=== PATIENT | female | born 1965 | race Caucasian/White ===

== ENCOUNTER 2017-09-23 13:17 | Observation (INO) | payer OTHER ==
[2017-09-23] MEDS ORDERED: LOPRESSOR 5 MG/5 ML INJECTION IV ONE ×4 (13:41→14:38)
[2017-09-23] MEDS ORDERED: NITRO-BID 2% UD PACKETS TOP ONE (13:41)
--- NOTE | 2017-09-23 13:46 | ERPHSYRPT ---
- History of Present Illness Time Seen by Provider: 09/23/17 13:35 Historian: patient Exam Limitations: clinical condition Patient Subjective Stated Complaint: Chest Pain since Thursday. No hx of complaint Triage Nursing Assessment: Pt presents to the ED with complaints of chest pain since thursday, intermittent in nature. Pt states pain today felt different than the other pains. No hx of complaint. Pt states she believes stress is causing the pain. Physician History: PATIENT WITH A HISTORY OF HYPERTENSION, COMPLAINS OF SHARP SUBSTERNAL CHEST PAINS INTERMITTENT X 4 DAYS, STATES PAIN RESOLVED 1 HOUR PRIOR TO EMERGENCY ROOM ARRIVAL. DENIES ASSOCIATED PALPITATIONS, DIAPHORESIS, DYSPNEA, RADIATION OF PAIN TO HER BACK, JAW OR ARMS. HAS AN ASPIRIN ALLERGY. HAS HISTORY OF MULTIPLE CERVICAL, THORACIC AND LUMBAR BULGING DISC ASSOCIATED WITH LEFT ARM NUMBNESS. Timing/Duration: day(s) Activities at Onset: none Quality: sharpness Location: substernal Chest Pain Radiation: no radiation Severity of Pain-Max: moderate Severity of Pain-Current: none Modifying Factors: Improves With: nothing Associated Symptoms: denies symptoms Prior Chest Pain/Cardiac Workup: no prior chest pain Nitro Today/Relief: no nitro taken today Aspirin Treatment Today: no aspirin today (HAS ASPIRIN ALLERGY) Allergies/Adverse Reactions: aspirin Allergy (Severe, Verified 09/23/17 13:25) NSAIDS (Non-Steroidal Anti-Inflamma Allergy (Severe, Verified 11/03/11 13:34) Penicillins Allergy (Severe, Verified 11/03/11 13:33) Sulfa (Sulfonamide Antibiotics) [Sulfa(Sulfonamide Antibiotics)] Allergy (Severe , Verified 11/03/11 13:33) Home Medications: Benazepril HCl 10 mg [Lotensin 10 MG] 10 mg PO DAILY 09/23/17 [History] Hydrocodone Bit/Acetaminophen [[place] 7.5-325 Tablet] 1 each PO BIDPRN PRN [History] Hx Tetanus, Diphtheria Vaccination/Date Given: Yes Hx Influenza Vaccination/Date Given: No Hx Pneumococcal Vaccination/Date Given: No Immunizations Up to Date: No - Review of Systems Constitutional: No Fever, No Chills Eyes: No Symptoms Ears, Nose, & Throat: No Symptoms Respiratory: No Symptoms, No Cough, No Dyspnea Cardiac: Chest Pain, No Edema, No Syncope Abdominal/Gastrointestinal: No Symptoms, No Abdominal Pain, No Nausea, No Vomiting, No Diarrhea Genitourinary Symptoms: No Symptoms, No Dysuria Musculoskeletal: No Symptoms, No Back Pain, No Neck Pain Skin: No Rash Neurological: No Dizziness, No Focal Weakness, No Sensory Changes Psychological: No Symptoms Endocrine: No Symptoms All Other Systems: Reviewed and Negative - Past Medical History Pertinent Past Medical History: Yes Neurological History: No Pertinent History ENT History: No Pertinent History Cardiac History: Hypertension Respiratory History: No Pertinent History Endocrine Medical History: No Pertinent History Musculoskeletal History: No Pertinent History GI Medical History: GERD History: No Pertinent History Psycho-Social History: Anxiety Female Reproductive Disorders: No Pertinent History - Past Surgical History Past Surgical History: Yes Neuro Surgical History: No Pertinent History Cardiac: No Pertinent History Respiratory: No Pertinent History Gastrointestinal: Cholecystectomy Genitourinary: Other Musculoskeletal: No Pertinent History Female Surgical History: No Pertinent History Other Surgical History: HYST BLADDER REAPAIR TIMES 2 - Social History Smoking Status: Current every day smoker How long have you smoked: 5 years Exposure to second hand smoke: Yes Drug Use: none Patient Lives Alone: No - Female History Hx Now: No - Nursing Vital Signs Nursing Vital Signs: Initial Vital Signs Temperature 97.9 F 09/23/17 13:18 Pulse Rate 118 H 09/23/17 13:18 Respiratory Rate 18 09/23/17 13:18 Blood Pressure 179/100 09/23/17 13:18 O2 Sat by Pulse Oximetry 100 09/23/17 13:18 Pain Scale Pain Intensity 2 - Physical Exam General Appearance: no apparent distress, alert Eye Exam: PERRL/EOMI, eyes nml inspection Ears, Nose, Throat Exam: normal ENT inspection, moist mucous membranes Neck Exam: normal inspection, non-tender, supple, full range of motion Respiratory Exam: normal breath sounds, lungs clear, No respiratory distress Cardiovascular Exam: regular rate/rhythm, normal heart sounds, tachycardia Gastrointestinal/Abdomen Exam: soft, normal bowel sounds, No tenderness, No mass Back Exam: normal inspection, No CVA tenderness, No vertebral tenderness Extremity Exam: normal inspection, normal range of motion Neurologic Exam: alert, oriented x 3, cooperative, normal mood/affect, sensation nml, No motor deficits Skin Exam: normal color, warm, dry SpO2 Interpretation: normal SpO2: 100 Oxygen Delivery: Room Air - Course EKG Interpreted by Me: RATE, Sinus Rhythm, Sinus Tach (RATE 118, LATERAL T-WAVE FLAT), NORMAL AXIS - Radiology Exams Chest X-ray Interpretation: Discussed w/ radiologist, No Infiltrates Ordered Tests: Active Orders 24 hr Category Date Time Status Rigging Worker STAT Care 09/23/17 13:41 Active EKG-ER Only STAT Care 09/23/17 13:41 Active IV Insertion STAT Care 09/23/17 13:41 Active Oxygen-ED Only NASAL CANNULA 2 lpm Care 09/23/17 13:41 Active Pulse Oximetry (ED) STAT Care 09/23/17 13:41 Active CHEST 1 VIEW (PORTABLE) Stat Exams 09/23/17 13:41 Completed CBC W DIFF Stat Lab 09/23/17 13:40 Completed CMP Stat Lab 09/23/17 13:40 Completed D-DIMER QUANTITATION Stat Lab 09/23/17 13:40 Completed NT PRO BNP Stat Lab 09/23/17 13:40 Completed PROTIME WITH INR Stat Lab 09/23/17 13:40 Completed TROPONIN Q3H Lab 09/23/17 13:40 Completed TROPONIN Q3H Lab 09/23/17 16:45 Ordered TROPONIN Q3H Lab 09/23/17 19:45 Ordered TROPONIN Q3H Lab 09/23/17 22:45 Ordered TROPONIN Q3H Lab 09/24/17 01:45 Ordered Medication Summary Generic Name Dose Route Start Last Admin Trade Name Freq PRN Reason Stop Dose Admin Sodium Chloride 1,000 mls @ 50 mls/hr 09/23/17 13:45 09/23/17 13:50 Sodium Chloride 0.9% 1000 Ml IV 10/23/17 13:44 50 mls/hr .Q20H DEVANTE Administration Discontinued Medications Generic Name Dose Route Start Last Admin Trade Name Freq PRN Reason Stop Dose Admin Metoprolol Tartrate 2.5 mg 09/23/17 13:41 09/23/17 13:50 Lopressor 5 Mg/5 Ml Injection IV 09/23/17 13:42 2.5 mg STAT ONE Administration Metoprolol Tartrate Confirm 09/23/17 13:47 Lopressor 5 Mg/5 Ml Injection Administered 09/23/17 13:48 Dose 5 mg IV .STK-MED ONE Metoprolol Tartrate 5 mg 09/23/17 14:35 09/23/17 14:39 Lopressor 5 Mg/5 Ml Injection IV 09/23/17 14:36 5 mg STAT ONE Administration Metoprolol Tartrate Confirm 09/23/17 14:38 Lopressor 5 Mg/5 Ml Injection Administered 09/23/17 14:39 Dose 5 mg IV .STK-MED ONE Nitroglycerin 1 gm 09/23/17 13:41 09/23/17 13:50 Nitro-Bid 2% Ud Packets TOP 09/23/17 13:42 1 gm STAT ONE Administration Nitroglycerin Confirm 09/23/17 13:47 Nitro-Bid 2% Ud Packets Administered 09/23/17 13:48 Dose 1 gm .ROUTE .STK-MED ONE Lab/Rad Data: Laboratory Result Diagrams 09/23/17 13:40 09/23/17 13:40 Laboratory Results 09/23/17 09/23/17 09/23/17 Range/Units 13:40 13:40 13:40 WBC (4.0-10.5) K/mm3 RBC (4.1-5.4) M/mm3 Hgb (12.0-16.0) gm/dl Hct (35-47) % MCV (78-100) fl MCH (26-32) pg MCHC (32-36) g/dl RDW (11.5-14.0) % Plt Count (150-450) K/mm3 MPV (6-9.5) fl Gran % (36.0-66.0) % Eos # (Auto) (0-0.5) Absolute Lymphs (auto) (1.0-4.6) Absolute Monos (auto) (0.0-1.3) Lymphocytes % (24.0-44.0) % Monocytes % (0.0-12.0) % Eosinophils % (0.00-5.0) % Basophils % (0.0-0.4) % Absolute Granulocytes (1.4-6.9) Basophils # (0-0.4) PT 11.6 (9.95-12.35) SECONDS INR 1.04 (0.8-3.0) D-Dimer < 215 L (215-500) ng/mL Sodium 141 (137-145) mmol/L Potassium 3.4 L (3.5-5.1) mmol/L Chloride 99 (98-107) mmol/L Carbon Dioxide 31 H (22-30) mmol/L Anion Gap 14.4 (5-15) MEQ/L BUN 10 (7-17) mg/dL Creatinine 0.68 (0.52-1.04) mg/dL Estimated GFR > 60.0 ML/MIN Glucose 97 (74-106) mg/dL Calcium 9.9 (8.4-10.2) mg/dL Total Bilirubin 0.50 (0.2-1.3) mg/dL AST 38 H (14-36) U/L ALT 48 H (0-35) U/L Alkaline Phosphatase 97 (38-126) U/L Troponin I < 0.012 (0.000-0.034) ng/mL NT-Pro-B Natriuret Pep 26.2 (0-900) pg/mL Serum Total Protein 8.3 H (6.3-8.2) g/dL Albumin 4.8 (3.5-5.0) g/dL 09/23/17 Range/Units 13:40 WBC 9.8 (4.0-10.5) K/mm3 RBC 4.57 (4.1-5.4) M/mm3 Hgb 12.8 (12.0-16.0) gm/dl Hct 39.8 (35-47) % MCV 87.1 (78-100) fl MCH 28.0 (26-32) pg MCHC 32.2 (32-36) g/dl RDW 15.0 H (11.5-14.0) % Plt Count 295 (150-450) K/mm3 MPV 9.6 H (6-9.5) fl Gran % 64.4 (36.0-66.0) % Eos # (Auto) 0.14 (0-0.5) Absolute Lymphs (auto) 2.67 (1.0-4.6) Absolute Monos (auto) 0.65 (0.0-1.3) Lymphocytes % 27.2 (24.0-44.0) % Monocytes % 6.6 (0.0-12.0) % Eosinophils % 1.4 (0.00-5.0) % Basophils % 0.4 (0.0-0.4) % Absolute Granulocytes 6.32 (1.4-6.9) Basophils # 0.04 (0-0.4) PT (9.95-12.35) SECONDS INR (0.8-3.0) D-Dimer (215-500) ng/mL Sodium (137-145) mmol/L Potassium (3.5-5.1) mmol/L Chloride (98-107) mmol/L Carbon Dioxide (22-30) mmol/L Anion Gap (5-15) MEQ/L BUN (7-17) mg/dL Creatinine (0.52-1.04) mg/dL Estimated GFR ML/MIN Glucose (74-106) mg/dL Calcium (8.4-10.2) mg/dL Total Bilirubin (0.2-1.3) mg/dL AST (14-36) U/L ALT (0-35) U/L Alkaline Phosphatase (38-126) U/L Troponin I (0.000-0.034) ng/mL NT-Pro-B Natriuret Pep (0-900) pg/mL Serum Total Protein (6.3-8.2) g/dL Albumin (3.5-5.0) g/dL - Progress Progress Note: 09/23/17 13:50 ADMINISTERED NITROPASTE 1" ACW, LOPRESSOR 2.5MG IV FOR TACHYCARDIA, NO ASPIRIN GIVEN DUE TO ALLERGY Discussed with : Alireza (DISCUSSED WITH DR LINDO AT 1500 FOR OBSERVATION) - Departure Time of Disposition: 15:15 Departure Disposition: Observation Clinical Impression: ACUTE CHEST PAIN Condition: Stable Critical Care Time: No Referrals: YANDY FREDERICK [NON-STAFF PHY W/O PRIVILEGES] -
[2017-09-23] MEDS ORDERED: NITRO-BID 2% UD PACKETS ONE (13:47)
[2017-09-23] MEDS: Sodium Chloride 0.9% 1000 ML 1,000 ML IV SCH ×2 (13:50→16:52)
[2017-09-23 13:53] LABS: BASOPHIL % 0.4 % (0.0-0.4); Basophil (Absolute #) 0.04 (0-0.4); Eosinophil % 1.4 % (0.00-5.0); Eosinophil (Absolute #) 0.14 (0-0.5); Granulocyte Absolute (ANC) 6.32 (1.4-6.9); Granulocytes % 64.4 % (36.0-66.0); Hematocrit 39.8 % (35-47); Hemoglobin 12.8 gm/dl (12.0-16.0); Lymphocyte (Absolute #) 2.67 (1.0-4.6); Lymphocytes % 27.2 % (24.0-44.0); Mean Cell Volume 87.1 fl (78-100); Mean Corpuscular Hgb Concent. 32.2 g/dl (32-36); Mean Platelet Volume 9.6 fl (6-9.5); Monocyte (Absolute #) 0.65 (0.0-1.3); Monocytes % 6.6 % (0.0-12.0); Platelet Count 295 K/mm3 (150-450); Red Blood Count 4.57 M/mm3 (4.1-5.4); White Blood Count 9.8 K/mm3 (4.0-10.5)
--- NOTE | 2017-09-23 13:57 | XRAY ---
Indication: Chest pain. Comparison: None Portable chest demonstrates normal heart, lungs, and bony thorax with a few incidental calcified granulomas.
[2017-09-23 14:09] LABS: INR 1.04 (0.8-3.0)
[2017-09-23 14:18] LABS: D-DIMER QUANTITATION < 215 ng/mL (215-500)
[2017-09-23 14:21] LABS: ALBUMIN 4.8 g/dL (3.5-5.0); ALKALINE PHOSPHATASE 97 U/L (38-126); ANION GAP 14.4 MEQ/L (5-15); BLOOD UREA NITROGEN 10 mg/dL (7-17); CHLORIDE 99 mmol/L (98-107); Calcium 9.9 mg/dL (8.4-10.2); Carbon Dioxide 31 mmol/L (22-30); Creatinine 1 0.68 mg/dL (0.52-1.04); Glucose 97 mg/dL (74-106); Potassium 3.4 mmol/L (3.5-5.1); SGOT/AST 38 U/L (14-36); SGPT/ALT 48 U/L (0-35); SODIUM 141 mmol/L (137-145); Total Protein 8.3 g/dL (6.3-8.2)
[2017-09-23 14:30] LABS: NT PRO BNP 26.2 pg/mL (0-900)
[2017-09-23] MEDS ORDERED: MAALOX ES 30 ML UNIT DOSE PO PRN (15:11)
[2017-09-23] MEDS ORDERED: Nitrostat 0.4 MG Tablet SL PRN (15:11)
[2017-09-23] MEDS ORDERED: Zofran 4 MG/2 ML VIAL IV PRN (15:11)
[2017-09-23] MEDS ORDERED: MORPHINE SULFATE 2 MG INJ IV PRN (15:11)
[2017-09-23] MEDS ORDERED: Senokot-S Tablet PO PRN (15:11)
[2017-09-23] MEDS ORDERED: MILK OF MAGNESIA 30 ML PO PRN (15:11)
[2017-09-23] MEDS ORDERED: Norco 10/325 MG Tablet PO PRN (15:14)
[2017-09-23] MEDS: TYLENOL 325 MG PO PRN ×2 (16:15→22:02)
--- NOTE | 2017-09-23 21:21 | PCM.HP ---
History of Present Illness - Chief Complaint Chief Complaint: chest pain. History of Present Illness: is a 52 year old female who presented to the ER today with a 2-3 days history of intermittent chest pain. She was recently started on lotensin for hypertension and has a history of chronic back and neck pain related to disc disease. She had nausea and vomiting yesterday, today she had substernal chest pain that was sharp in nature, improved with rest. She is a smoker and has a family history of CAD. She was found to have hypertension in the ER on presentation and improved with IV metoprolol, she denies chest pain since admission but has had some headache. - Review of Systems Constitutional: No Fever, No Chills Respiratory: No Cough, No Short Of Breath Cardiac: No Chest Pain, No Edema, No Syncope Abdominal/Gastrointestinal: No Abdominal Pain, No Nausea, No Vomiting, No Diarrhea Genitourinary Symptoms: No Dysuria Skin: No Rash All Other Systems: Reviewed and Negative Medications & Allergies Home Medications: Home Medication List Benazepril HCl 10 mg [Lotensin 10 MG] 10 mg PO DAILY 09/23/17 [History Confirmed 09/23/17] Hydrocodone Bit/Acetaminophen [[place] 7.5-325 Tablet] 1 each PO BIDPRN PRN [History Confirmed 09/23/17] Allergies/Adverse Reactions: Allergies Allergy/AdvReac Type Severity Reaction Status Date / Time aspirin Allergy Severe Verified 09/23/17 13:25 NSAIDS (Non-Steroidal Allergy Severe Verified 11/03/11 13:34 Anti-Inflamma Penicillins Allergy Severe Verified 11/03/11 13:33 Sulfa (Sulfonamide Allergy Severe Verified 11/03/11 13:33 Antibiotics) [Sulfa(Sulfonamide Antibiotics)] - Past Medical History Past Medical History: Yes Neurological History: No Pertinent History ENT History: No Pertinent History Cardiac History: Hypertension Respiratory History: No Pertinent History Endocrine Medical History: No Pertinent History Musculoskelatal History: No Pertinent History GI Medical History: GERD History: No Pertinent History Pyscho-Social History: Anxiety Reproductive Disorders: No Pertinent History - Female History Hx Last Menstrual Period: 2002 Are you now?: No - Past Surgical History Past Surgical History: Yes Neuro Surgical History: No Pertinent History Cardiac History: No Pertinent History Respiratory Surgery: No Pertinent History GI Surgical History: Cholecystectomy Genitourinary Surgical Hx: Other Musculskeletal Surgical Hx: No Pertinent History Female Surgical History: No Pertinent History Other Surgical History: HYST BLADDER REAPAIR TIMES 2 - Social History Smoking Status: Smoker, status unknown How long have you smoked: 5 years Exposure to second hand smoke: No Alcohol: None Drug Use: none - Physical Exam Vital Signs: Vital Signs - 24 hr Temp Pulse Resp BP Pulse Ox 09/23/17 20:00 98 09/23/17 19:58 97.9 F 94 H 19 139/75 98 09/23/17 16:56 97.5 F 91 H 16 175/95 97 09/23/17 16:00 97.6 F 90 16 174/94 97 09/23/17 15:37 97.5 F 91 H 175/95 09/23/17 15:32 97.5 F 91 H 16 175/95 97 09/23/17 15:10 100 09/23/17 14:50 84 18 165/95 98 09/23/17 14:18 91 H 16 151/96 99 09/23/17 14:01 96 H 16 182/108 100 09/23/17 13:45 98 09/23/17 13:18 97.9 F 118 H 18 179/100 100 Oxygen-Last 24 hours O2 Percentage 2 Liters = 28% O2 Percentage 2 Liters = 28% General Appearance: no apparent distress, alert Eye Exam: PERRL/EOMI, eyes nml inspection Ears, Nose, Throat Exam: normal ENT inspection, TMs normal, pharynx normal, moist mucous membranes Neck Exam: normal inspection, non-tender, supple, full range of motion Respiratory Exam: normal breath sounds, lungs clear, No respiratory distress Cardiovascular Exam: regular rate/rhythm, normal heart sounds, normal peripheral pulses Gastrointestinal/Abdomen Exam: soft, normal bowel sounds, No tenderness, No mass Extremity Exam: normal inspection, normal range of motion, pelvis stable Skin Exam: normal color, warm, dry, No rash Results - Labs Lab/Micro Results: Lab Results-Last 24 Hours 09/23/17 09/23/17 Range/Units 16:51 19:55 Troponin I < 0.012 < 0.012 (0.000-0.034) ng/mL - Radiology Impressions Radiology Exams & Impressions: Radiology Procedures Category Date Time Status ECHO W/2D AND DOPPLER [US] Routine Exams 09/23/17 15:50 Taken - Other Procedures and Tests Respiratory Therapy 09/23/17 15:11 EKG Q8HX2,QAMX3,PRN 09/23/17 17:12 Smoking Cessation Education ONCE 09/23/17 22:00 EKG ONCE 09/24/17 05:00 EKG ONCE 09/25/17 05:00 EKG ONCE 09/26/17 05:00 EKG ONCE Assessment/Plan (1) Chest pain Current Visit: Yes Status: Acute Assessment & Plan: will r/o OH, d-dimer negative and troponins negative x 2 since arrival. keep on telemetry. no obvious acute changes on EKG but patient has multiple risk factors for CAD, Dr Willis has been consulted. patient has documented allergy to aspirin, will have fasting lipid profile in the am Code(s): R07.9 - CHEST PAIN, UNSPECIFIED (2) Hypertensive urgency Current Visit: Yes Status: Acute Assessment & Plan: continue lotensin 10mg daily, add metoprolol 25mg daily and observe. most recent bp documented 139/75 Code(s): I16.0 - HYPERTENSIVE URGENCY
[2017-09-24 02:51] LABS: Risk Ratio 5.6
[2017-09-24] MEDS ORDERED: NORCO 7.5/325 MG TAB PO PRN (07:54)
--- NOTE | 2017-09-24 08:02 | PCM.DS ---
Discharge Summary Date of Admission: 09/23/17 15:25 Admitting Physician: LORIN LINDO Consults: Consults on Case 09/23/17 15:15 Cardiology Consult [Notify Chest Painting And Sealing Supervisor of Admit] ROUTINE Primary Care Provider: NO FAMILY DOCTOR Allergies Allergies aspirin Allergy (Severe, Verified 09/23/17 13:25) NSAIDS (Non-Steroidal Anti-Inflamma Allergy (Severe, Verified 11/03/11 13:34) Penicillins Allergy (Severe, Verified 11/03/11 13:33) Sulfa (Sulfonamide Antibiotics) [Sulfa(Sulfonamide Antibiotics)] Allergy (Severe , Verified 11/03/11 13:33) Hospital Summary - Hospital Course Hospital Course: patient was admitted with chest pain, hypertensive urgency. bp better controlled but still elevated on benazepril 10mg and metoprolol 25mg daily, increasing benazepil to 20mg daily. patient with strong fam hx of cad and smoker , LDL 165, will start statin. has an aspirin allergy, consult with Dr Willis pending. - Vitals & Intake/Output Vital Signs: Vital Signs Temperature 97.9 F 09/24/17 07:45 Pulse Rate 78 09/24/17 07:45 Respiratory Rate 18 09/24/17 07:45 Blood Pressure 137/81 09/24/17 07:45 O2 Sat by Pulse Oximetry 98 09/24/17 07:45 Oxygen-Last Documented O2 Percentage 2 Liters = 28% Intake & Output: Intake & Output 09/21/17 09/22/17 09/23/17 09/24/17 11:59 11:59 11:59 11:59 Intake Total 1628 Output Total 1425 Balance 203 Weight 73.8 kg - Lab Result Diagrams: 09/23/17 13:40 09/23/17 13:40 Lab Results-Last 24 Hrs: Lab Results-Last 24 Hours 09/23/17 09/23/17 09/23/17 Range/Units 16:51 19:55 23:02 Troponin I < 0.012 < 0.012 < 0.012 (0.000-0.034) ng/mL Triglycerides (30-150) mg/dL Cholesterol (50-200) mg/dL LDL Cholesterol (30-100) mg/dL HDL Cholesterol (40-60) mg/dL Heart Disease Risk Ratio 09/24/17 09/24/17 Range/Units 02:15 02:15 Troponin I < 0.012 (0.000-0.034) ng/mL Triglycerides 191 H (30-150) mg/dL Cholesterol 257 H (50-200) mg/dL LDL Cholesterol 165 H (30-100) mg/dL HDL Cholesterol 46 (40-60) mg/dL Heart Disease Risk Ratio 5.6 - Radiology Exams Ordered Rad Exams-Entire Visit: Radiology Procedures Category Date Time Status ECHO W/2D AND DOPPLER [US] Routine Exams 09/23/17 15:50 Taken - Procedures and Test Procedures and Tests throughout Hospitalization: Therapy Orders & Screens 09/23/17 17:12 Smoking Cessation Education ONCE Comment: Diagnosis: chest pain. Smoking Status: Smoker, status unknown How long have you smoked: 5 years Have you smoked in the past 12 months: Yes Do you dip or chew tobacco: No 09/23/17 22:00 EKG ONCE Comment: Diagnosis: ACUTE CHEST PAIN 09/24/17 05:00 EKG ONCE Comment: Diagnosis: ACUTE CHEST PAIN 09/25/17 05:00 EKG ONCE Comment: Diagnosis: ACUTE CHEST PAIN 09/26/17 05:00 EKG ONCE Comment: Diagnosis: ACUTE CHEST PAIN Discharge Exam General Appearance: no apparent distress, alert Skin Exam: normal color, warm, dry Respiratory Exam: normal breath sounds, lungs clear, No respiratory distress Cardiovascular Exam: regular rate/rhythm, normal heart sounds Gastrointestinal/Abdomen Exam: soft, No tenderness, No mass Final Diagnosis/Problem List - Final Discharge Diagnosis/Problem (1) Chest pain Current Visit: Yes Status: Acute Assessment & Plan: PA ruled out, resolved. will start simvastatin due to cholesterol and discussed smoking cessation/risk factor modification. (2) Hypertensive urgency Current Visit: Yes Status: Acute Assessment & Plan: increased benazepril from 10mg to 20mg daily, continue metoprolol 25mg daily - Discharge Disposition: Home, Self-Care Condition: Stable Prescriptions: No Action Benazepril HCl 10 mg [Lotensin 10 MG] 10 mg PO DAILY Hydrocodone Bit/Acetaminophen [[place] 7.5-325 Tablet] 1 each PO BIDPRN PRN PRN Reason: Pain Follow up with: DOCTOR,NO FAMILY [Primary Care Provider] - 1 Week
[2017-09-24] MEDS ORDERED: Toprol-Xl 25MG Tablets PO SCH (10:00)
[2017-09-24] MEDS ORDERED: Lotensin 10 MG PO SCH ×2 (10:00)
[2017-09-24] MEDS ORDERED: Carafate 1 GM PO SCH (11:30)
[2017-09-24] MEDS: Sodium Chloride 0.9% 1000 ML 1,000 ML IV SCH (11:39)
[2017-09-24 12:02] VITALS: BP 147/78; PULSE 87; O2SAT 94
--- NOTE | 2017-09-24 13:00 | CONS ---
CONSULT DATE: 09/24/2017 BRIEF HISTORY: This is a 52 year-old female who was seen because of chest pain. 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 She started to develop some chest discomfort that she described as vague with no associated nausea or vomiting. In addition, she has been experiencing left arm numbness which appears to be chronic that has been going on for two weeks. She was recently diagnosed to have cervical disc problem. She also has had chronic left shoulder pain. As far as the chest discomfort is concerned this has been going on for the last two to three days which is not consistently related to effort. There is no increase in frequency or duration. She has never had myocardial infarction or heart failure. She denies any paroxysmal nocturnal dyspnea. She cannot lay down flat because of back problems. No syncopal attacks or palpitations. She has not had any cardiac testing in the past. CARDIAC RISK FACTORS: Negative for diabetes. History of hypertension. She smokes about one to two cigarettes a day since 2011. She has hyperlipidemia. FAMILY HISTORY: Negative for premature coronary artery disease although coronary artery disease runs strongly in the maternal antecedents. REVIEW OF SYSTEMS: EDUCATIONAL ASSISTANT: There is no history of stroke. No seizures. She has cervical radiculopathy based on recent MRI showing some cervical disc problem. RESPIRATORY: No chronic cough. No hemoptysis. No history of pneumonia or bronchitis. GI: She has occasional vague abdominal pains of uncertain etiology. No nausea. No vomiting. No diarrhea or constipation. : She has history of urinary tract stones which apparently she passed spontaneously. No dysuria. No flank pains. No hematuria. PERIPHERAL VASCULAR: No history of deep venous thrombosis or claudication. No leg edema. MUSCULOSKELETAL: She has joint disorders. SKIN: No active dermatological problems. HEMATOLOGY: No blood dyscrasia or transfusion. ENDOCRINE: No thyroid disorder. PAST SURGICAL HISTORY: Vaginal hysterectomy, cholecystectomy. MEDICATIONS: Benazepril, Flippin, metoprolol, Simvastatin, Carafate. SOCIAL HISTORY: She works at the [employer]. She is . She has no significant alcohol intake. PHYSICAL EXAMINATION: Her blood pressure is 161/81 with a heart rate of 75, respiratory rate about 14. GENERAL: The patient is a middle aged female who is alert, oriented who is not in any form of distress. HEENT: Unremarkable. NECK: No significant JVD. No carotid bruit. CHEST: The breath sounds are clear bilaterally. CARDIAC: Heart tones are normal. There is no audible gallop. The rhythm is regular. ABDOMEN: Soft with normal bowel sounds. EXTREMITIES: No significant edema with good distal pulses. LAB DATA AND DIAGNOSTIC TESTS: The troponin I is less than 0.12. Cholesterol 257, LDL 165. CBC shows hemoglobin 12.8 with PLT 295,000. The D-dimer is less than 215. Liver enzymes show mild elevation of serum transaminase. The glomerular filtration rate is greater than 60. The EKG shows normal sinus rhythm with poor R-progression. ASSESSMENT AND PLAN: 1) Chest pains somewhat atypical for angina. She does have multiple cardiac risk factors. There is no evidence of myocardial infarction. I would suggest a pharmacological stress test. 2) Hypertension: Continue with current medical regimen but will increase her SHARON inhibitor to get better blood pressure control, continue with beta arturo. 3) Hyperlipidemia. The patient is currently on statins, need to monitor serum transaminases. I will review her echocardiogram. Further recommendation will be made after the pharmacologic stress test has been performed.
[2017-09-24] MEDS ORDERED: NORVASC 5 MG PO SCH (15:00)
[2017-09-24] MEDS ORDERED: ZOCOR 20MG PO SCH (22:00)
--- NOTE | 2017-09-25 07:36 | ECHO ---
Transthoracic echocardiographic examination and color Doppler was done on 09/23/2017. INDICATION: Chest pain. IMPRESSION: 1) NO REGIONAL WALL MOTION ABNORMALITY. ESTIMATED GLOBAL LEFT VENTRICULAR EJECTION FRACTION BETWEEN 60 AND 70%. 2) MILDL AORTIC REGURGITATION. 3) TRACE TRICUSPID REGURGITATION. RIGHT VENTRICULAR SYSTOLIC PRESSURE OF 22 MM OF MERCURY. 4) TRACE PULMONIC INSUFFICIENCY. 5) MODERATE LEFT VENTRICULAR HYPERTROPHY. The left ventricle is visualized and demonstrated adequate motion of all the segments. Estimated global left ventricular ejection fraction around 60%. There is moderate left ventricular hypertrophy. The mitral valve is seen and this opens adequately. There is no significant mitral regurgitation. Left atrium is normal. The aortic valve opens adequately. There is no significant gradient across the left ventricular outflow tract. There is mild aortic regurgitation. The right side chambers are normal. There is trace tricuspid regurgitation. The right ventricular systolic pressure of 22 mm of Mercury. There is also trace pulmonic insufficiency.
== END 2017-09-24 15:15 | disposition home or self-care (01) ==
LOC: ED 13:17 → MED SURG 15:25
PROVIDERS: ADMIT Family Medicine; ATTEND Family Medicine
DX: R07.89 Other chest pain (principal); I10 Essential (primary) hypertension; E78.5 Hyperlipidemia, unspecified; K21.9 Gastro-esophageal reflux disease without esophagitis; F41.9 Anxiety disorder, unspecified; I16.0 Hypertensive urgency; Z72.0 Tobacco use
CPT/HCPCS: 36000; 36415; 71045; 80053; 80061; 83721; 83880; 84484; 85025; 85379; 85610; 93005; 93041; 93268; 93306; 96360; 96374; 96375; 99284; 99285; A9270-GY; G0378